=== PATIENT | female | born 1980 | race Caucasian/White ===

== ENCOUNTER 2017-04-21 11:05 | Emergency (ER) | payer MEDICAID ==
[2017-04-21 11:15] VITALS: TEMP 98.1
--- NOTE | 2017-04-21 11:18 | EDPHY ---
H & P Stated Complaint: vomiting Time Seen by Provider: 04/21/17 11:18 - Personal History LMP (Females 10-55): Unknown Current Tetanus/Diphtheria Vaccine: Unsure Current Tetanus Diphtheria and Acellular Pertussis (TDAP): Unsure - Medical/Surgical History Hx Asthma: No Hx Chronic Respiratory Disease: No Hx Diabetes: No Hx Cardiac Disease: No Hx Renal Disease: No Hx Cirrhosis: No Hx Alcoholism: No Hx HIV/AIDS: No Hx Splenectomy or Spleen Trauma: No Other PMH: denies - Social History Smoking Status: Current every day smoker Constitutional: Initial Vital Signs Temperature (C) 36.7 C 04/21/17 11:13 Heart Rate 105 H 04/21/17 11:13 Respiratory Rate 20 04/21/17 11:13 Blood Pressure 155/95 H 04/21/17 11:13 O2 Sat (%) 100 04/21/17 11:13 O2 Delivery Mode Room Air Allergies/Adverse Reactions: No Known Allergies Allergy (Unverified 04/21/17 11:37) Medical Decision Making ED Course/Re-evaluation: CHIEF COMPLAINT: "I've been throwing up since 06:00 this morning" HISTORY OF PRESENT ILLNESS: The patient is a 36 y/o female arriving with her family member complaining of acute onset vomiting that woke her from sleep at 06 :00 this morning, 5 hours ago. She says she felt normal last night and had a couple beers, but denies heavy alcohol use or illicit drug use. She reports a small amount of blood in her emesis. She denies abdominal pain, diarrhea, fever , cough, dyspnea, or chest pain. Denies prior symptoms like this. REVIEW OF SYSTEMS: A 10 point review of systems was performed and is negative with the exception of the elements mentioned in the history of present illness. PHYSICAL EXAM: HR, BP, O2 Sat, RR. Temp noted General Appearance: Alert, well hydrated, appropriate, and non-toxic appearing. Appears uncomfortable. Head: Atraumatic without scalp tenderness or obvious injury Eyes: Pupils equal, round, reactive to light and accommodation, EOMI, no trauma , no injection. Nose: Atraumatic, no rhinorrhea, clear. Throat: Mucus membranes moist. Neck: Supple Respiratory: No retractions, no distress, no wheezes, and no accessory muscle use. Lungs are clear to auscultation bilaterally. Cardiovascular: Regular rate and rhythm, no murmurs, rubs, or gallops. Good capillary refill all extremities. Gastrointestinal: Abdomen is soft, nontender, non-distended, no masses, no rebound, no guarding, no peritoneal signs. Musculoskeletal: Normal active ROM of all extremities, atraumatic. Neurological: Alert, appropriate, and interactive. The patient has non-focal cranial nerves, motor, sensory, and cerebellar exam. Skin: No rashes, good turgor, no nodules on palpation. Past medical history: Denies Past surgical history: Denies Family history: Noncontributory Social history: Smoker. Family member at bedside. DIFFERENTIAL DIAGNOSIS: The differential diagnosis for the patient's nausea and vomiting included but was not limited to gastroenteritis, gastritis, appendicitis, and medication side effect. MEDICAL DECISION MAKING: This is an otherwise healthy 34 y/o female who presents with a 5-hour history of acute onset nausea and vomiting that woke her from sleep this morning. She has a benign abdomen and is not actively vomiting upon assessment. Emesis is mainly bilious with perhaps small amount of coffee-grounds mixed in. Plan for symptomatic treatment with 20mg IV Pepcid, 4mg IV Zofran, 1L IV NS. PO challenge. Plan for discharge with Zofran and PCP follow up. Return precautions discussed. - Data Points Laboratory Results: Laboratory Results 04/21/17 11:25 04/21/17 Unknown 04/21/17 04/21/17 04/21/17 Unknown 11:25 11:25 WBC RBC Hgb POC Hgb 16.0 gm/dL gm/dL (12.6-16.3) Hct POC Hct 47 % % (38-47) MCV MCH MCHC RDW Plt Count MPV Neut % (Auto) Lymph % (Auto) Woodward % (Auto) Eos % (Auto) Baso % (Auto) Nucleat RBC Rel Count Absolute Neuts (auto) Absolute Lymphs (auto) Absolute Monos (auto) Absolute Eos (auto) Absolute Basos (auto) Absolute Nucleated RBC Immature Gran % Immature Gran # POC Sodium 144 mEq/L mEq/L (135-145) Sodium 146 mEq/L H mEq/L (135-145) POC Potassium 3.7 mEq/L mEq/L (3.3-5.0) Potassium 4.3 mEq/L mEq/L (3.5-5.2) POC Chloride 109 mEq/L mEq/L (97-110) Chloride 108 mEq/L mEq/L (97-110) Carbon Dioxide 23 mEq/l mEq/l (22-31) Anion Gap 15 mEq/L mEq/L (8-16) POC BUN 15 mg/dL mg/dL (7-23) BUN 15 mg/dL mg/dL (7-23) Creatinine 0.8 mg/dL mg/dL (0.6-1.0) POC Creatinine 0.8 mg/dL mg/dL (0.6-1.0) Estimated GFR > 60 Glucose 127 mg/dL H mg/dL (70-100) POC Glucose 133 mg/dL H mg/dL (70-100) Calcium 9.9 mg/dL mg/dL (8.5-10.4) Total Bilirubin 0.5 mg/dL mg/dL (0.1-1.4) Conjugated Bilirubin 0.2 mg/dL mg/dL (0.0-0.5) Unconjugated Bilirubin 0.3 mg/dL mg/dL (0.0-1.1) AST 44 IU/L IU/L (14-46) ALT 48 IU/L IU/L (9-52) Alkaline Phosphatase 91 IU/L IU/L (38-126) Total Protein 8.0 g/dL g/dL (6.3-8.2) Albumin 4.8 g/dL g/dL (3.5-5.0) Lipase 84 IU/L IU/L (23-300) Beta HCG, Qual NEGATIVE 04/21/17 11:25 WBC 12.81 10^3/uL H 10^3/uL (3.80-9.50) RBC 4.82 10^6/uL 10^6/uL (4.18-5.33) Hgb 15.4 g/dL g/dL (12.6-16.3) POC Hgb Hct 44.7 % % (38.0-47.0) POC Hct MCV 92.7 fL fL (81.5-99.8) MCH 32.0 pg pg (27.9-34.1) MCHC 34.5 g/dL g/dL (32.4-36.7) RDW 13.2 % % (11.5-15.2) Plt Count 251 10^3/uL 10^3/uL (150-400) MPV 9.9 fL fL (8.7-11.7) Neut % (Auto) 86.6 % H % (39.3-74.2) Lymph % (Auto) 9.8 % L % (15.0-45.0) Woodward % (Auto) 2.5 % L % (4.5-13.0) Eos % (Auto) 0.1 % L % (0.6-7.6) Baso % (Auto) 0.5 % % (0.3-1.7) Nucleat RBC Rel Count 0.0 % % (0.0-0.2) Absolute Neuts (auto) 11.10 10^3/uL H 10^3/uL (1.70-6.50) Absolute Lymphs (auto) 1.26 10^3/uL 10^3/uL (1.00-3.00) Absolute Monos (auto) 0.32 10^3/uL 10^3/uL (0.30-0.80) Absolute Eos (auto) 0.01 10^3/uL L 10^3/uL (0.03-0.40) Absolute Basos (auto) 0.06 10^3/uL 10^3/uL (0.02-0.10) Absolute Nucleated RBC 0.00 10^3/uL 10^3/uL (0-0.01) Immature Gran % 0.5 % % (0.0-1.1) Immature Gran # 0.06 10^3/uL 10^3/uL (0.00-0.10) POC Sodium Sodium POC Potassium Potassium POC Chloride Chloride Carbon Dioxide Anion Gap POC BUN BUN Creatinine POC Creatinine Estimated GFR Glucose POC Glucose Calcium Total Bilirubin Conjugated Bilirubin Unconjugated Bilirubin AST ALT Alkaline Phosphatase Total Protein Albumin Lipase Beta HCG, Qual Medications Given: Discontinued Medications Sodium Chloride (Ns) 1,000 mls @ 0 mls/hr IV EDNOW ONE; Wide Open PRN Reason: Protocol Stop: 04/21/17 11:25 Last Admin: 04/21/17 11:33 Dose: 1,000 mls Famotidine/Sodium Chloride (Pepcid 20 Mg (Premix)) 50 mls @ 200 mls/hr IV EDNOW ONE Stop: 04/21/17 11:38 Last Admin: 04/21/17 11:34 Dose: 50 mls Ondansetron HCl (Zofran) 4 mg IVP EDNOW ONE Stop: 04/21/17 11:25 Last Admin: 04/21/17 11:34 Dose: 4 mg Point of Care Test Results: 04/21/17 11:25 POC Sodium 144 POC Potassium 3.7 POC Chloride 109 POC BUN 15 POC Creatinine 0.8 POC Glucose 133 H Departure - Departure Disposition: Home, Routine, Self-Care Clinical Impression: Gastroenteritis Nausea and vomiting Qualifiers: Vomiting type: unspecified Vomiting Intractability: non-intractable Qualified Code(s): R11.2 - Nausea with vomiting, unspecified Condition: Good Instructions: Gastroenteritis (ED), Acute Nausea and Vomiting (ED) Additional Instructions: 1. Use Zofran as prescribed for nausea and vomiting. 2. Clear fluids only for the next 24 hours. Slowly advance diet as tolerated. 3. Follow up with your primary care provider for unimproved symptoms over the next few days. 4. Return for worsening of condition. Referrals: [facility],. [Clinic] - As per Instructions Report Scribed for: Jaime Fuller Report Scribed by: Savi Angeles Date of Report: 04/21/17 Time of Report: 11:26
[2017-04-21] MEDS ORDERED: FAMOTIDINE 20 MG/NACL 50 ML IV ONE (11:24)
[2017-04-21] MEDS ORDERED: ONDANSETRON 4 MG/2 ML VIAL IVP ONE (11:24)
[2017-04-21] MEDS ORDERED: NS 1,000 ML IV ONE (11:24)
[2017-04-21 11:46] LABS: PLATELET COUNT 251 10^3/uL (150-400)
[2017-04-21 13:07] VITALS: BP 137/89; PULSE 73; RESP 16; O2SAT 96
== END 2017-04-21 13:23 | disposition home or self-care (01) ==
DX: K52.9 Noninfective gastroenteritis and colitis, unspecified (principal); F17.200 Nicotine dependence, unspecified, uncomplicated; E86.9 Volume depletion, unspecified
CPT/HCPCS: 82947-QW; 96365; J2405